=== PATIENT | male | born 1965 | race Hispanic/Latino ===

== ENCOUNTER 2019-07-16 18:04 | Emergency (ER) | payer OTHER, SELFPAY ==
--- NOTE | 2019-07-16 18:48 | RAD REPORT ---
EXAM DESCRIPTION: Rohit Single View07/16/2019 6:42 pm CLINICAL HISTORY: Chest pain COMPARISON: none FINDINGS: The lungs appear clear of acute infiltrate. The heart is normal size IMPRESSION: No acute abnormalities displayed
[2019-07-16 18:49] LABS: Absolute Lymphocytes (CBC) 2.1 K/uL (0.7-4.9); Hematocrit 46.5 % (39.6-49.0); Lymphocytes % 30.4 % (15.3-44.8); MPV 8.4 fL (7.6-11.3); RBC Red Blood Cell Count 5.29 M/uL (4.33-5.43)
[2019-07-16 19:05] LABS: Protime INR 1.09
[2019-07-16 19:06] LABS: ALT/SGPT 29 U/L (12-78); AST/SGOT 19 U/L (15-37); Albumin 3.9 g/dL (3.4-5.0); Alkaline Phosphatase 62 U/L (45-117); BUN Blood Urea Nitrogen 13 mg/dL (7-18); Bicarbonate 27 mmol/L (21-32); Bilirubin Direct 0.1 mg/dL (0-0.2); Bilirubin Total 0.4 mg/dL (0.2-1.0); Glucose Level 288 mg/dL (74-106); Magnesium 1.8 mg/dL (1.8-2.4); NT PRO-BNP 26 pg/mL (<125); Potassium 4.1 mmol/L (3.5-5.1); Protein, Total 7.5 g/dL (6.4-8.2); Sodium Level 136 mmol/L (136-145); Troponin (Emerg Dept Use Only) < 0.02 ng/mL (0.0-0.045)
--- NOTE | 2019-07-16 19:28 | EDPHYS ---
Physician Documentation [facility] Name: Sumit Tan Age: 54 yrs Sex: Male : 1965 Arrival Date: 07/16/2019 Time: 18:09 Bed 5 Private MD: ED Physician Mannie Marcus HPI: 07/15 18:26 This 54 yrs old Male presents to ER via Ambulatory with complaints of Elevated pm1 Blood Pressure. 18:26 The patient or guardian reports chest pain that is located primarily in the anterior pm1 aspect of left upper chest. Onset: 3 day(s) ago. The pain does not radiate. Associated signs and symptoms: Pertinent positives: dizziness, Pertinent negatives: abdominal pain, headache, nausea, palpitations, shortness of breath, vomiting. The chest pain is described as sharp. Duration: The patient or guardian reports multiple episodes, that have now resolved, the episodes last approximately 2 second(s), Last episode this AM. Modifying factors: The symptoms are alleviated by nothing. the symptoms are aggravated by activity. Severity of pain: in the emergency department the pain has resolved. The patient has not recently seen a physician. 18:26 Patient felt that his blood pressure was elevated for the past three days. pm1 Historical: - Allergies: 18:27 NKDA; ph - Home Meds: 18:27 metformin Oral [Active]; ph - PMHx: 18:27 Diabetes - NIDDM; Diverticulitis; ph - PSHx: 18:27 colon; Appendectomy; ph - Immunization history:: Adult Immunizations unknown. - Social history:: Smoking status: Patient denies any tobacco usage or history of. ROS: 18:27 Constitutional: Negative for fever, chills, and weight loss, Neck: Negative for injury, pm1 pain, and swelling. 18:27 Respiratory: Negative for shortness of breath, cough, wheezing, and pleuritic chest pain, Abdomen/GI: Negative for abdominal pain, nausea, vomiting, diarrhea, and constipation, Back: Negative for injury and pain, MS/Extremity: Negative for injury and deformity, Skin: Negative for injury, rash, and discoloration. 18:27 Cardiovascular: Positive for chest pain, Negative for edema, orthopnea, palpitations. 18:27 Respiratory: Negative for 18:27 Neuro: Positive for dizziness, Negative for headache, numbness, tingling, weakness. Exam: 18:27 Constitutional: This is a well developed, well nourished patient who is awake, alert, pm1 and in no acute distress. Head/Face: Normocephalic, atraumatic. Neck: Trachea midline, no thyromegaly or masses palpated, and no cervical lymphadenopathy. Supple, full range of motion without nuchal rigidity, or vertebral point tenderness. No Meningismus. Chest/axilla: Normal chest wall appearance and motion. Nontender with no deformity. No lesions are appreciated. 18:27 Abdomen/GI: Soft, non-tender. No distension or tympany. No guarding or rebound. No evidence of tenderness throughout. Back: No spinal tenderness. No costovertebral tenderness. Full range of motion. Skin: Warm, dry with normal turgor. Normal color with no rashes, no lesions, and no evidence of cellulitis. MS/ Extremity: Pulses equal, no cyanosis. Neurovascular intact. Full, normal range of motion. 18:27 Cardiovascular: Exam negative for acute changes, Rate: normal, Rhythm: regular, Pulses: no pulse deficits are appreciated, Heart sounds: normal, Edema: is not appreciated. 18:27 Respiratory: Exam negative for acute changes, respiratory distress, shortness of breath. 18:27 Neuro: Exam negative for acute changes, Orientation: is normal, Mentation: is normal, Motor: is normal. Vital Signs: 18:24 BP 176 / 86; Pulse 71; Resp 18; Temp 98.4; Pulse Ox 99% on R/A; Weight 58.97 kg; Height ph 5 ft. 2 in. (157.48 cm); 18:42 BP 169 / 78; Pulse 66; Resp 17; Pulse Ox 99% ; jl7 19:15 BP 178 / 68; Pulse 67; Resp 16; Pulse Ox 98% ; ea 18:24 Body Mass Index 23.78 (58.97 kg, 157.48 cm) ph MDM: 18:19 Patient medically screened. pm1 19:26 Data reviewed: vital signs. Data interpreted: Pulse oximetry: on room air is 99 %. pm1 Interpretation: normal. Counseling: I had a detailed discussion with the patient and/or guardian regarding: the historical points, exam findings, and any diagnostic results supporting the discharge/admit diagnosis, lab results, radiology results, the need for outpatient follow up, to return to the emergency department if symptoms worsen or persist or if there are any questions or concerns that arise at home. 07/15 18:24 Order name: Basic Metabolic Panel; Complete Time: 19:10 pm1 07/15 18:24 Order name: CBC with Diff; Complete Time: 19:10 pm1 07/15 18:24 Order name: LFT's; Complete Time: 19:10 pm1 07/15 18:24 Order name: Magnesium; Complete Time: 19:10 pm07/15 18:24 Order name: NT PRO-BNP; Complete Time: 19:10 pm1 07/15 18:24 Order name: PT-INR; Complete Time: 19:10 pm1 07/15 18:24 Order name: Troponin (emerg Dept Use Only); Complete Time: 19:10 pm1 07/15 18:24 Order name: XRAY Chest (1 view); Complete Time: 18:53 pm1 07/15 18:24 Order name: EKG; Complete Time: 18:25 pm1 07/15 18:24 Order name: Cardiac monitoring; Complete Time: 18:39 pm1 07/15 18:24 Order name: EKG - Nurse/Tech; Complete Time: 18:39 pm1 07/15 18:24 Order name: IV Saline Lock; Complete Time: 18:39 pm1 07/15 18:24 Order name: Labs collected and sent; Complete Time: 18:39 pm1 07/15 18:24 Order name: O2 Per Protocol; Complete Time: 18:39 pm1 07/15 18:24 Order name: O2 Sat Monitoring; Complete Time: 18:39 pm1 EC:48 Rate is 60 beats/min. Rhythm is regular, Normal Sinus Rhythm with No ectopy. No Q pm1 waves. T waves are Normal. No ST changes noted. Clinical impression: Normal ECG. Administered Medications: No medications were administered Disposition: 07/16/19 19:27 Discharged to Home. Impression: Essential (primary) hypertension. - Condition is Stable. - Discharge Instructions: Hypertension, How to Take Your Blood Pressure, [id number], DASH Eating Plan, Managing Your Hypertension. - Medication Reconciliation Form, Thank You Letter, Antibiotic Education, Prescription Opioid Use, Work release form form. - Follow up: Emergency Department; When: As needed; Reason: Worsening of condition. Follow up: Private Physician; When: 2 - 3 days; Reason: Recheck today's complaints, Continuance of care, Re-evaluation by your physician. - Problem is new. - Symptoms have improved. Addendum: 07/23/2019 07:07 Co-signature as Attending Physician, Mannie Marcus MD. r n Signatures: Dispatcher [employer] EDMS Mannie Marcus MD MD rn Hall, Patricia RN RN Mariusz Blackburn, ANTENNA INSTALLER ANTENNA INSTALLER pm1 Almaz Anand RN RN ea Corrections: (The following items were deleted from the chart) 07/15 19:38 19:27 07/16/2019 19:27 Discharged to Home. Impression: Essential (primary) ea hypertension. Condition is Stable. Forms are Medication Reconciliation Form, Thank You Letter, Antibiotic Education, Prescription Opioid Use. Follow up: Emergency Department; When: As needed; Reason: Worsening of condition. Follow up: Private Physician; When: 2 - 3 days; Reason: Recheck today's complaints, Continuance of care, Re-evaluation by your physician. Problem is new. Symptoms have improved. pm1
--- NOTE | 2019-07-16 19:28 | ER ---
Nurse's Notes [facility] Name: Sumit Tan Age: 54 yrs Sex: Male : 1965 Arrival Date: 07/16/2019 Time: 18:09 Bed 5 Private MD: Diagnosis: Essential (primary) hypertension Presentation: 07/15 18:24 Chief complaint: Patient states: " I feel like my BP has been high the last few days." ph Reports slight dizziness and intermittent L sided chest pain, worse w/ activity, denies hx of HTN. Coronavirus screen: Patient denies a cough. Patient denies shortness of breath or difficulty breathing. Patient denies measured and/or subjective temperature greater than 100.4F prior to today's visit. Patient denies travel on a cruise ship or to a country the [facility] currently lists as an affected area. Patient denies contact with known and/or suspected case of COVID-19. Ebola Screen: No symptoms or risks identified at this time. Initial Sepsis Screen: Does the patient meet any 2 criteria? No. Patient's initial sepsis screen is negative. Does the patient have a suspected source of infection? No. Patient's initial sepsis screen is negative. Risk Assessment: Do you want to hurt yourself or someone else? Patient reports no desire to harm self or others. Onset of symptoms was July 16, 2019. 18:24 Method Of Arrival: Ambulatory 18:24 Acuity: LYNN 3 ph Historical: - Allergies: 18:27 NKDA; ph - Home Meds: 18:27 metformin Oral [Active]; ph - PMHx: 18:27 Diabetes - NIDDM; Diverticulitis; ph - PSHx: 18:27 colon; Appendectomy; ph - Immunization history:: Adult Immunizations unknown. - Social history:: Smoking status: Patient denies any tobacco usage or history of. Screenin:42 Abuse screen: Denies threats or abuse. Denies injuries from another. Nutritional jl7 screening: No deficits noted. Tuberculosis screening: No symptoms or risk factors identified. Fall Risk IV access (20 points). Total Montoya Fall Scale indicates No Risk (0-24 pts). Assessment: 18:30 General: Appears in no apparent distress. uncomfortable, Behavior is calm, cooperative, jl7 appropriate for age. Pain: Denies pain. Neuro: Level of Consciousness is awake, alert, obeys commands, Oriented to person, place, time, situation. Cardiovascular: Reports palpitations, shortness of breath, since intermittent since 07-13-2019 Patient's skin is warm and dry. Respiratory: Airway is patent Respiratory effort is even, unlabored, Respiratory pattern is regular, symmetrical. GI: No signs and/or symptoms were reported involving the gastrointestinal system. : No signs and/or symptoms were reported regarding the genitourinary system. EENT: No signs and/or symptoms were reported regarding the EENT system. Derm: Skin is pink, warm \\T\\ dry. Musculoskeletal: No signs and/or symptoms reported regarding the musculoskeletal system. 19:30 General: Appears in no apparent distress. Behavior is calm, cooperative, appropriate ea for age. Pain: Denies pain. Neuro: Level of Consciousness is awake, alert, obeys commands, Oriented to person, place, time, situation. Cardiovascular: Patient's skin is warm and dry. Respiratory: Airway is patent Respiratory effort is even, unlabored, Respiratory pattern is regular, symmetrical. Derm: Skin is pink, warm \\T\\ dry. 19:37 Reassessment: Patient and/or family updated on plan of care and expected duration. Pain ea level reassessed. Patient is alert, oriented x 3, equal unlabored respirations, skin warm/dry/pink. Discharge instruction given to patient, verbalized the understanding of instruction. Vital Signs: 18:24 BP 176 / 86; Pulse 71; Resp 18; Temp 98.4; Pulse Ox 99% on R/A; Weight 58.97 kg; Height ph 5 ft. 2 in. (157.48 cm); 18:42 BP 169 / 78; Pulse 66; Resp 17; Pulse Ox 99% ; jl7 19:15 BP 178 / 68; Pulse 67; Resp 16; Pulse Ox 98% ; ea 18:24 Body Mass Index 23.78 (58.97 kg, 157.48 cm) ph ED Course: 18:09 Patient arrived in ED. am2 18:19 Mariusz Blackburn NP is PHCP. pm1 18:19 Mannie Marcus MD is Attending Physician. pm1 18:25 Corey Lopez RN is Primary Nurse. jl7 18:26 Triage completed. ph 18:27 Arm band placed on Patient placed in an exam room. ph 18:30 Patient has correct armband on for positive identification. Placed in gown. Bed in low jl7 position. Call light in reach. Side rails up X 1. youth nutritional monitor on. Pulse ox on. NIBP on. 18:30 Initial lab(s) drawn, by me, sent to lab. Inserted saline lock: 20 gauge in right jl7 forearm, using aseptic technique. Blood collected. 18:40 EKG done, by ED staff, reviewed by Mariusz Blackburn NP. 3 18:42 XRAY Chest (1 view) In Process Unspecified. EDMS 19:30 IV discontinued, intact, bleeding controlled, No redness/swelling at site. Pressure ea dressing applied. 19:37 No provider procedures requiring assistance completed. ea Administered Medications: No medications were administered Outcome: 19:27 Discharge ordered by . pm1 19:37 Discharged to home ambulatory. ea 19:37 Condition: stable 19:37 Discharge instructions given to patient, Instructed on discharge instructions, follow up and referral plans. Demonstrated understanding of instructions, follow-up care. 19:38 Patient left the ED. ea Signatures: Dispatcher [employer] EDMT Digna Blake, RN RN Mariusz Dietrich NP PUMPER HEAD pm1 Corey Lopez RN RN jl7 Matilde Roca Yvonne Bledsoe 3 Almaz Anand RN RN ea
[2019-07-16 19:44] VITALS: TEMP 98.4
[2019-07-16 19:47] VITALS: BP 178/68; O2SAT 98
--- NOTE | 2019-07-17 07:21 | EKG ---
Test Date: 2019-07-16 Test Time: 18:44:02 Business Unit Manager: LARA MEASUREMENT RESULTS: Intervals: Rate: 60 RI: 154 QRSD: 76 QT: 370 QTc: 370 [place]: P: 46 RI: 154 QRS: 46 T: 38 INTERPRETIVE STATEMENTS: Normal sinus rhythm Normal ECG No previous ECG available for comparison Electronically Signed On 07-17-19 07:20:46 CDT by Shilo Dumont
== END 2019-07-16 19:38 | disposition home or self-care (01) ==
LOC: ER 18:04
DX: I10 Essential (primary) hypertension (principal); E11.9 Type 2 diabetes mellitus without complications
CPT/HCPCS: 36415; 71045; 80048; 80076; 83735; 83880; 84484; 85025; 85610; 93005; 99284

== ENCOUNTER 2020-03-01 06:42 | Emergency (ER) | payer SELFPAY ==
[2020-03-01 09:00] LABS: Urine Blood NEGATIVE (NEG); Urine Glucose 2+ (NEG); Urine Protein NEGATIVE (NEG); Urine pH 7.5 (5.0-7.0)
--- NOTE | 2020-03-01 09:00 | RAD REPORT ---
EXAM DESCRIPTION: Rohit Single View03/01/2020 7:59 am CLINICAL HISTORY: cough COMPARISON: June 2019 FINDINGS: 7 millimeter nodular opacity overlies the lower right lung. Left lung appears clear. Heart is normal size IMPRESSION: 7 millimeter nodular opacity overlies the lower right lung. This may represent a pulmona ry nodule or confluence of bone and vessels. Follow-up chest film could be obtained in 3 months. Alte rnatively, an unenhanced CT chest could be obtained
[2020-03-01 09:03] LABS: Basophils % 0.6 % (0-1.3); Hematocrit 47.4 % (39.6-49.0); Lymphocytes % 19.5 % (15.3-44.8); MPV 8.5 fL (7.6-11.3); RBC Red Blood Cell Count 5.42 M/uL (4.33-5.43)
[2020-03-01] MEDS ORDERED: NA CHLORIDE 0.9% 500 ML ONE (09:11)
[2020-03-01] MEDS ORDERED: ACETAMINOPHEN 325 MG TABLET ONE (09:12)
[2020-03-01 09:13] LABS: Urine Bacteria NONE SEEN /HPF (NONE SEEN); Urine RBC NONE SEEN /HPF (NONE SEEN)
[2020-03-01 09:24] LABS: BUN Blood Urea Nitrogen 10 mg/dL (7-18); Bicarbonate 28 mmol/L (21-32); Glucose Level 200 mg/dL (74-106); Potassium 4.4 mmol/L (3.5-5.1); Sodium Level 135 mmol/L (136-145)
[2020-03-01] MEDS ORDERED: AMOX/K CLAV 875 MG TAB ONE (10:36)
--- NOTE | 2020-03-01 10:59 | ER ---
Nurse's Notes [facility] Name: Sumit Tan Age: 55 yrs Sex: Male : 1965 Arrival Date: 03/01/2020 Time: 06:44 Bed 15 Private MD: Diagnosis: Streptococcal pharyngitis Presentation: 03/01 06:45 Chief complaint: Patient states: I woke up around 0430 with my heart racing. I could jb4 not catch my breath. I thought it was because of my medicine because I am diabetic. I now feel shaky and weak and I have a cough that started a few minutes ago. EMS states: PT woke up around 0400 and reports taht he had a racing heart beat. Now he has no complaints except that he felt bad at that time. 06:45 Coronavirus screen: Client denies travel out of the [place] in the last 14 days. At this jb4 time, the client does not indicate any symptoms associated with coronavirus-19. Ebola Screen: No symptoms or risks identified at this time. Initial Sepsis Screen: Does the patient meet any 2 criteria? No. Patient's initial sepsis screen is negative. Does the patient have a suspected source of infection? No. Patient's initial sepsis screen is negative. Risk Assessment: Do you want to hurt yourself or someone else? Patient reports no desire to harm self or others. Onset of symptoms was March 01, 2020. Transition of care: patient was not received from another setting of care. 06:45 Method Of Arrival: EMS: [facility] 06:45 Acuity: LYNN 3 jb 06:45 Care prior to arrival: Glucose check: 175. jb4 Historical: - Allergies: 06:51 NKDA; jb4 - Home Meds: 06:51 Metformin Oral [Active]; jb4 - PMHx: 06:51 Diabetes - NIDDM; Diverticulitis; Hypertension; jb4 - PSHx: 06:51 colon; Appendectomy; jb4 - Immunization history:: Adult Immunizations not up to date. - Social history:: Smoking status: Patient denies any tobacco usage or history of. Patient uses alcohol, occasionally. Patient/guardian denies using street drugs. - Family history:: not pertinent. - Hospitalizations: : No recent hospitalization is reported. Screenin:52 Abuse screen: Denies threats or abuse. Nutritional screening: No deficits noted. jb4 Tuberculosis screening: No symptoms or risk factors identified. Fall Risk None identified. Assessment: 06:52 General: Appears in no apparent distress. comfortable, Behavior is calm, cooperative, jb4 appropriate for age. Pain: Denies pain. Neuro: Level of Consciousness is awake, alert, obeys commands, Oriented to person, place, time, situation, Moves all extremities. Full function Speech is normal, Facial symmetry appears normal. Cardiovascular: Patient's skin is warm and dry. Respiratory: Airway is patent Respiratory effort is even, unlabored, Respiratory pattern is regular, symmetrical. GI: No signs and/or symptoms were reported involving the gastrointestinal system. : No signs and/or symptoms were reported regarding the genitourinary system. EENT: No signs and/or symptoms were reported regarding the EENT system. Derm: Skin is intact, Skin is pink, warm \T\ dry. Musculoskeletal: Circulation, motion, and sensation intact. Range of motion: intact in all extremities. 08:00 Reassessment: Patient appears in no apparent distress at this time. Patient and/or ph family updated on plan of care and expected duration. Pain level reassessed. Patient is alert, oriented x 3, equal unlabored respirations, skin warm/dry/pink. 09:06 Reassessment: Patient appears in no apparent distress at this time. Patient and/or ph family updated on plan of care and expected duration. Pain level reassessed. Patient is alert, oriented x 3, equal unlabored respirations, skin warm/dry/pink. Patient denies pain at this time. Vital Signs: 06:45 BP 159 / 82; Pulse 77; Resp 16; Temp 99.3(O); Pulse Ox 100% on R/A; Weight 56.7 kg (R); jb4 Height 5 ft. 2 in. (157.48 cm); Pain 0/10; 08:00 BP 132 / 72; Pulse 71; Resp 18; Pulse Ox 99% on R/A; ph 09:06 BP 148 / 69; Pulse 70; Resp 16; Pulse Ox 100% on R/A; ph 11:05 BP 135 / 73; Pulse 71; Resp 16; Temp 97.9; Pulse Ox 100% ; Pain 2/10; ll1 06:45 Body Mass Index 22.86 (56.70 kg, 157.48 cm) jb4 ED Course: 06:44 Patient arrived in ED. cl3 06:46 Franky Ambriz, RN is Primary Nurse. jb4 06:48 Triage completed. jb4 06:51 Arm band placed on right wrist. jb4 06:52 Patient has correct armband on for positive identification. Bed in low position. Call jb4 light in reach. Side rails up X 1. Pulse ox on. NIBP on. 06:58 Mannie Marcus MD is Attending Physician. rn 07:59 XRAY Chest (1 view) In Process Unspecified. EDMS 09:06 Inserted saline lock: 22 gauge in right antecubital area, using aseptic technique. ph Blood collected. 11:10 No provider procedures requiring assistance completed. IV discontinued, intact, ll1 bleeding controlled, No redness/swelling at site. Pressure dressing applied. Administered Medications: 09:01 Drug: Tylenol 650 mg Route: PO; ph 10:26 Follow up: Response: No adverse reaction; RASS: Alert and Calm (0) ll1 09:01 Drug: NS 0.9% 500 ml Route: IV; Rate: bolus; Site: right antecubital; ph 10:26 Follow up: Response: No adverse reaction; RASS: Alert and Calm (0); IV Status: ll1 Completed infusion; IV Intake: 1000ml 10:25 Drug: Augmentin 875 mg Route: PO; ll1 11:11 Follow up: Response: No adverse reaction; RASS: Alert and Calm (0) ll1 Intake: 10:26 IV: 1000ml; Total: 1000ml. ll1 Outcome: 10:58 Discharge ordered by . rn 11:10 Discharged to home ambulatory. ll1 11:10 Condition: stable 11:10 Discharge instructions given to patient, Instructed on discharge instructions, follow up and referral plans. medication usage, Demonstrated understanding of instructions, follow-up care, medications, Prescriptions given X 1. 11:11 Patient left the ED. ll1 Addendum: 03/03/2020 12:06 Addendum: COVID-19 Result: Negative result given to RN to notify pt. Notified pt of i w negative COVID 19 swab results. Pt advised that even with a negative test result they should remain in isolation until symptom free for 3 days without medication. Pt also advised to return to the ED for worsening symptoms. Signatures: Dispatcher [employer] EDKavya Villatoro RN RN Mannie Wise MD MD rn Hall, Patricia, RN RN ph Bryson, James, RN RN jb4 Ayaz Gold3 Maida Gold RN RN ll1
--- NOTE | 2020-03-01 10:59 | EDPHYS ---
Physician Documentation [facility] Name: Sumit Tan Age: 55 yrs Sex: Male : 1965 Arrival Date: 03/01/2020 Time: 06:44 Bed 15 Private MD: ED Physician Mannie Marcus HPI: 03/01 09:04 This 55 yrs old Male presents to ER via EMS with complaints of Dont Feel Good. rn 09:04 The patient presents with a history of heart racing. Context: The symptoms occur at rn rest. Onset: The symptoms/episode began/occurred this morning. Duration: The patient or guardian reports a single episode. Modifying factors: The symptoms are aggravated by nothing. The symptoms are alleviated by nothing. Associated signs and symptoms: Pertinent positives: cough, SOB, Pertinent negatives: fever, lightheadedness, syncope. Severity of symptoms: At their worst the symptoms were mild in the emergency department the symptoms have improved. The patient has not experienced similar symptoms in the past. The patient has not recently seen a physician. Historical: - Allergies: 06:51 NKDA; jb4 - Home Meds: 06:51 Metformin Oral [Active]; jb4 - PMHx: 06:51 Diabetes - NIDDM; Diverticulitis; Hypertension; jb4 - PSHx: 06:51 colon; Appendectomy; jb4 - Immunization history:: Adult Immunizations not up to date. - Social history:: Smoking status: Patient denies any tobacco usage or history of. Patient uses alcohol, occasionally. Patient/guardian denies using street drugs. - Family history:: not pertinent. - Hospitalizations: : No recent hospitalization is reported. ROS: 09:04 Constitutional: Negative for fever, chills, and weight loss, Eyes: Negative for injury, rn pain, redness, and discharge, Neck: Negative for injury, pain, and swelling, Cardiovascular: + palpitations Respiratory: + sob and cough Abdomen/GI: Negative for abdominal pain, nausea, vomiting, diarrhea, and constipation, : Negative for injury, bleeding, discharge, and swelling, MS/Extremity: Negative for injury and deformity, Skin: Negative for injury, rash, and discoloration, Neuro: Negative for headache, numbness, tingling, and seizure Exam: 09:04 Constitutional: This is a well developed, well nourished patient who is awake, alert, rn and in no acute distress. Head/Face: Normocephalic, atraumatic. ENT: MMM Cardiovascular: Regular rate and rhythm . No pulse deficits. Respiratory: Speaking full sentences. No increased work of breathing, no retractions or nasal flaring. Abdomen/GI: soft, non-tender Skin: Warm, dry MS/ Extremity: Pulses equal, no cyanosis. Neuro: Awake and alert, GCS 15, oriented to person, place, time, and situation. Cranial nerves II-XII grossly intact. Motor strength 5/5 in all extremities. Sensory grossly intact. Cerebellar exam normal. Vital Signs: 06:45 BP 159 / 82; Pulse 77; Resp 16; Temp 99.3(O); Pulse Ox 100% on R/A; Weight 56.7 kg (R); jb4 Height 5 ft. 2 in. (157.48 cm); Pain 0/10; 08:00 BP 132 / 72; Pulse 71; Resp 18; Pulse Ox 99% on R/A; ph 09:06 BP 148 / 69; Pulse 70; Resp 16; Pulse Ox 100% on R/A; ph 11:05 BP 135 / 73; Pulse 71; Resp 16; Temp 97.9; Pulse Ox 100% ; Pain 2/10; ll1 06:45 Body Mass Index 22.86 (56.70 kg, 157.48 cm) jb4 MDM: 06:58 Patient medically screened. rn 10:56 Differential diagnosis: arrythmia, dehydration, stress disorder, fever, strep, flu. rn Data reviewed: vital signs, nurses notes, lab test result(s), radiologic studies, and as a result, I will discharge patient. Counseling: I had a detailed discussion with the patient and/or guardian regarding: the historical points, exam findings, and any diagnostic results supporting the discharge/admit diagnosis, lab results, radiology results, the need for outpatient follow up, to return to the emergency department if symptoms worsen or persist or if there are any questions or concerns that arise at home. Special discussion: I discussed with the patient/guardian in detail that at this point there is no indication for admission to the hospital. It is understood, however, that if the symptoms persist or worsen the patient needs to return immediately for re-evaluation. 03/01 07:23 Order name: CBC with Diff; Complete Time: 09:17 rn 03/01 07:23 Order name: Basic Metabolic Panel; Complete Time: 09:30 rn 03/01 07:23 Order name: Urine Microscopic Only; Complete Time: 09:17 rn 03/01 07:23 Order name: Flu; Complete Time: 09:57 rn 03/01 07:23 Order name: Strep; Complete Time: 09:57 rn 03/01 07:23 Order name: COVID-19 rn 03/01 07:23 Order name: XRAY Chest (1 view); Complete Time: 09:03 rn 03/01 08:35 Order name: Glucose, Ancillary Testing; Complete Time: 08:55 EDMS 03/01 08:46 Order name: Urine Dipstick--Ancillary (enter results) eb 03/01 08:47 Order name: Urine Dipstick-Ancillary; Complete Time: 09:03 EDMS 03/01 07:23 Order name: IV Start; Complete Time: 09:08 rn 03/01 07:23 Order name: Urine Dipstick-Ancillary (obtain specimen); Complete Time: 08:24 rn 03/01 07:23 Order name: Glucose Level; Complete Time: 08:24 rn Administered Medications: 09:01 Drug: Tylenol 650 mg Route: PO; ph 10:26 Follow up: Response: No adverse reaction; RASS: Alert and Calm (0) [facility] 09:01 Drug: NS 0.9% 500 ml Route: IV; Rate: bolus; Site: right antecubital; ph 10:26 Follow up: Response: No adverse reaction; RASS: Alert and Calm (0); IV Status: ll1 Completed infusion; IV Intake: 1000ml 10:25 Drug: Augmentin 875 mg Route: PO; ll1 11:11 Follow up: Response: No adverse reaction; RASS: Alert and Calm (0) ll1 Disposition: 03/01/20 10:58 Discharged to Home. Impression: Streptococcal pharyngitis. - Condition is Stable. - Discharge Instructions: Strep Throat, Upper Respiratory Infection, Adult. - Prescriptions for Augmentin 875- 125 mg Oral Tablet - take 1 tablet by ORAL route every 12 hours for 10 days; 20 tablet. - Medication Reconciliation Form, Thank You Letter, Antibiotic Education, Prescription Opioid Use form. - Follow up: Private Physician; When: As needed; Reason: Recheck today's complaints, Re-evaluation by your physician. - Problem is new. - Symptoms have improved. Signatures: Dispatcher [employer] [facility] Mannie Marcus MD MD rn Hall, Patricia, RN RN Franky Aviles RN RN jb4 Maida Gold RN RN ll1 Corrections: (The following items were deleted from the chart) 10:55 07:25 D-[id number] ordered. [facility] 11:11 10:58 03/01/2020 10:58 Discharged to Home. Impression: Streptococcal pharyngitis. ll1 Condition is Stable. Forms are Medication Reconciliation Form, Thank You Letter, Antibiotic Education, Prescription Opioid Use. Follow up: Private Physician; When: As needed; Reason: Recheck today's complaints, Re-evaluation by your physician. Problem is new. Symptoms have improved. rn
[2020-03-06 01:38] VITALS: O2SAT 100
[2020-03-06 01:39] VITALS: BP 135/73; TEMP 97.9
== END 2020-03-01 11:11 | disposition home or self-care (01) ==
LOC: ER 06:42
DX: J02.0 Streptococcal pharyngitis (principal); Z20.828 Contact with and (suspected) exposure to other viral communicable diseases; I10 Essential (primary) hypertension; E11.9 Type 2 diabetes mellitus without complications
CPT/HCPCS: 36415; 71045; 80048; 81003; 81015; 82947; 85025; 87081; 87804; 96360; 99284; J7040; U0002